=== PATIENT | male | born 1980 | race Caucasian/White ===

== ENCOUNTER 2017-08-28 05:09 | Day surgery (SDC) | payer OTHER ==
[~2017-08-28] VITALS: Ht 167.6 cm; Wt 52.2 kg
--- NOTE | ~2017-08-28 | OP ---
PATIENT NAME: CHARLIE MORALEZ MEDICAL RECORD: [id number] :82 LOCATION:LOIS ADMISSION DATE: SURGEON: LA SEAY MD DATE OF OPERATION: 08/28/2017 PREOPERATIVE DIAGNOSIS: Left inguinal mass. POSTOPERATIVE DIAGNOSES: Left femoral triangle lymph node with sinus. PROCEDURE: Left femoral triangle lymph node biopsy, with excision of sinus, the excised dimensions, including margins, measured 9.2 cm in the lateral medial dimension as well as 5.2 cm in the anterior superior dimension. This was an immediate closure with subcutaneous flaps were created. SURGEON: La Seay MD OPERATIVE COURSE: The patient was conveyed to the operating room electively on 08/28/2017. General anesthesia was induced by the anesthesia staff. The left groin and left thigh were sterilely prepped and draped. Through the use of double curvilinear incisions, I excised the skin and subcutaneous tissue around the overlying mass. The dimensions of the excision are listed above. I dissected down to the mass and identified it as a very large lymph node. I had previously examined with the patient's left lower extremity had noted, no evidence of an infection, no evidence of neoplasm such as melanoma, but that would be causing such an enlarged lymph node. I then excised the lymph node in its entirety. Meticulous hemostasis was achieved with electrocautery. Subcutaneous flaps were created sharply. I then closed the wound with interrupted 3-0 Vicryl for the deep dermis as well as multiple interrupted horizontal mattress 3-0 Vicryl Rapide for the skin and then Dermabond. The patient was then extubated and conveyed to post-anesthesia care unit where he was in stable condition. I am going to dismiss him back to the [facility] with Kevyn for pain. I will plan to see him in my office in 2-3 weeks for suture removal. TRANSINT:[id number] Voice Confirmation ID: [id number] DOCUMENT ID: [id number] LA SEAY MD at 0938 CC: LA CASTILLO MD, MADHU HERNANDEZ MD and FAIZAN KIM [id number] DICTATION DATE: 08/28/17 1217 PLUGMAN: 08/28/17 1244 [facility] 08/28/17 [facility] [address] [place] [address]
--- NOTE | ~2017-08-28 | HP ---
PATIENT: CHARLIE MORALEZ MEDICAL RECORD: [id number] ACCOUNT: [id number] LOCATION:LOIS : 82 ADMISSION DATE: 08/28/17 HISTORY AND PHYSICAL EXAMINATION CHIEF COMPLAINT: Left groin swelling. HISTORY OF PRESENT ILLNESS: The patient has a mass in the left groin. There appears to be a sinus tract that tracks caudad and medially. I am going to plan for excisional biopsy of the left groin mass. The risks, possible complications, and alternatives to procedure were explained to the patient. He elects to proceed. Discussion specifically included, but was not limited to, bleeding requiring emergency reoperation, intestinal injury, the possible need for herniorrhaphy, lymphocele. PAST MEDICAL AND SURGICAL HISTORY: Constipation, headaches. He is hard of hearing, also pontocerebellar atrophy. ALLERGIES: No known drug allergies. HOME MEDICINES: Docusate sodium, pain reliever plus, sulfamethoxazole/trimethoprim, therapeutic tar shampoo. SOCIAL HISTORY: Former smoker. REVIEW OF SYSTEMS: Negative for heart disease or high blood pressure. Negative for fainting or seizures. Negative for rheumatic fever. Negative for diabetes. Negative for thyroid disease. Positive for COPD. Negative for shortness of breath. PHYSICAL EXAMINATION: GENERAL: The patient does not appear acutely ill. He does appear chronically ill. VITAL SIGNS: Reviewed. EARS: External ears appear normal. EYES: Extraocular movements are intact. NECK: Trachea is midline. CHEST: No intercostal retractions. PULMONARY: Nonlabored, no stridor. ABDOMEN: Nontender. IMPRESSION: Left groin mass with draining sinus. PLAN: Will be excisional biopsy of left groin mass. TRANSINT:[id number] Voice Confirmation ID: [id number] DOCUMENT ID: [id number] HISTORY AND PHYSICAL [id number] CHARLIE MORALEZ ROBERT MD at 0938 CC: [id number] DICTATION DATE: 08/28/17 0953 DIRECTOR OF SPA AND GUEST EXPERIENCE: 08/28/17 1017 [facility] 08/28/17 [facility] [address] [place] [address]
[2017-08-28] MEDS ORDERED: COLACE100 MG PO (06:51)
[2017-08-28 06:58] VITALS: BP 127/77; Ht 167.6 cm; Wt 52.2 kg
[2017-08-29 17:08] LABS: ACID FAST SMEAR Negative (()); AFB SPECIMEN PROCESSING Tissue Grinding (())
[2017-08-31 11:12] LABS: FUNGUS STAIN Final report (())
[2017-09-24 11:21] LABS: FUNGUS MYCOLOGY CULTURE Final report (())
== END 2017-08-28 10:50 | disposition home or self-care (01) ==
LOC: D.OPS 05:09
PROVIDERS: Surgery
DX: R19.09 Other intra-abdominal and pelvic swelling, mass and lump (principal); J44.9 Chronic obstructive pulmonary disease, unspecified; Z01.812 Encounter for preprocedural laboratory examination